=== PATIENT | male | born 1990 | race Caucasian/White ===

== ENCOUNTER 2022-09-19 12:33 | Emergency (ER) | payer OTHER, SELFPAY ==
[2022-09-19 12:49] VITALS: BP 123/81; PULSE 65; RESP 18; TEMP 36.4; O2SAT 96; BMI 29.4
--- NOTE | 2022-09-19 13:04 | CRLHL7_ITS ---
For Patients: As a result of the Cures Act, medical imaging exams and procedure reports are released immediately into your electronic medical record. You may view this report before your referring provider. If you have questions, please contact your health care provider. INDICATION: Pain TECHNIQUE: 3-view lumbar spine. COMPARISON: none FINDINGS: The lumbar vertebrae are anatomically aligned. The disc spaces are of normal height. Minimal discogenic spurring as L4-5. The facet joints appear intact. There is no evidence of a fracture or intrinsic bone lesion. The SI joints appear normal. The paraspinal soft tissues appear normal. IMPRESSION: No sign of acute injury. Dictated by Js Colindres MD @ 09/19/2022 1:34:47 PM (Electronically Signed)
--- NOTE | 2022-09-19 13:11 | ED.BACK ---
HPI - Back Pain/Injury General Date Seen: 09/19/22 Chief Complaint: Back Injury/Pain Stated Complaint: Lower back pain Time Seen by Provider: 09/19/22 12:36 Source: patient and family Mode of arrival: ambulatory Limitations: no limitations History of Present Illness HPI Narrative: Patient is a 32-year-old gentleman who presents here with back pain and left leg symptoms, he has had this now for approximately 5 days, after he bent over. Has a history of previous back issues, with an MRI remotely in the past, and a history of a pinched nerve. He has been to the chiropractor now 3 times, got some initial relief but today got no relief, he feels the back pain worse when he sits, he is get some relief with standing, really has inability to forward flex. As the pain going down his left leg, and the hamstrings, but not into his calf so much. Denies any weakness associated with this, any altered sensation no history of fevers chills or sweats, no history of weight loss, bowel or bladder symptoms, personal history of malignancy, or trauma, fevers chills or other issue. Took some ibuprofen 600 mg this morning, but came in here with his . They are scheduled to go on a trip to [facility] here in the next 2 days. MD elicited complaint: back pain Pertinent past history: prior back pain Onset (ago): day(s) Timing: constant and progressively worsening Severity: moderate Similar Symptoms Previously: Yes Quality: burning and stabbing Location: lumbar spine Radiation: left upper leg Exacerbating factors: movement, sitting upright and coughing/sneezing Relieving factors: none Context: while lifting Associated symptoms: denies other symptoms Work related injury: No Related Data Home Medications Medication Instructions Recorded Confirmed No Known Home Medications 09/19/22 09/19/22 Previous Rx's Medication Instructions Recorded methylprednisolone 4 mg tablets in 4 mg PO DAILY #21 ea 09/19/22 a dose pack (Medrol (Edenilson)) Allergies Allergy/AdvReac Type Severity Reaction Status Date / Time lactose Allergy Mild Abdominal Verified 09/11/22 11:24 Pain Review of Systems Status of ROS: Reports: 10 or more systems reviewed and unremarkable except as noted in History and below PFSH PFSH Family History Grandmother Diabetes Social History Smoking Status: Never smoker How often do you have a drink containing alcohol: never AUDIT-C Alcohol total score: 0 Non-prescribed substance use: denies use Exam Narrative: Exam Narrative: Patient is seen in room 3 he is in no apparent distress he is able to stand up he has a scoliosis of his lumbar spine which appears to be reactive, convex right. Forward flexion is approximately 30? backward extension is full, thoracic rotation is full, side flexion improves the situation he comes to the right worsens when he goes to the left, he is able to heel and toe walk for me in the room, SLR is are negative to 90? sitting, but positive at 60? on the left. While laying down. Presents no obvious sensory changes on gross sensation of his lower legs, is reflexes are +2/4 his knees and ankles, EHL, great toe flexors, ankle dorsiflexors and plantar flexors, knee flexors and extensors, and hip flexors are graded 5/5 power bilaterally, pulses normal the lower extremities. Const: Vital Signs, click to edit/add: Vital Signs - 24 hr 09/19/22 12:49 Temperature 97.5 F L Pulse Rate [Pulse Oximeter] 65 Respiratory Rate 18 Blood Pressure [Ri ght Upper Arm] 123/81 Pulse Oximetry 96 Oxygen Delivery Me thod Room Air Documenting provider has reviewed patient's vital signs: yes Course Course Hospital Course: I spoke to patient is x-rays are negative, he has a reassuring examination, I do believe that he has a left-sided radiculopathy, most likely from L5-S1 given the findings. I think it would be reasonable to try Medrol Dosepak along with some short-term narcotic medication, the risks benefits and side effects of this discussed in detail, I recommend use of ice belt also. Follow-up with primary care if ongoing signs and symptoms. Note for work given for today Vital Signs Vital signs: Initial Vital Signs Temperature 97.5 F L 09/19/22 12:49 Temperature Source Temporal Artery Scan 09/19/22 12:49 Pulse Rate 65 09/19/22 12:49 Respiratory Rate 18 09/19/22 12:49 Blood Pressure 123/81 09/19/22 12:49 Blood Pressure Mean 95 09/19/22 12:49 Blood Pressure Position Supine 09/19/22 12:49 Pulse Oximetry 96 09/19/22 12:49 Oxygen Delivery Method 09/19/22 12:49 Vital Signs Temperature 97.5 F L 09/19/22 12:49 Pulse Rate 65 09/19/22 12:49 Respiratory Rate 18 09/19/22 12:49 Blood Pressure 123/81 09/19/22 12:49 Pulse Oximetry 96 09/19/22 12:49 Oxygen Delivery Method 09/19/22 12:49 Temperature 97.5 F L 09/19/22 12:49 Pulse Rate 65 09/19/22 12:49 Respiratory Rate 18 09/19/22 12:49 Blood Pressure 123/81 09/19/22 12:49 Pulse Oximetry 96 09/19/22 12:49 Oxygen Delivery Method 09/19/22 12:49 MDM - Back Pain/Injury MDM Narrative Medical decision making narrative: Life-threatening differential diagnosis considered include: Cauda equina an epidural abscess, other differential diagnosis considered includes sprain, contusion, nerve root entrapment, radiculopathy, muscle spasm, urolithiasis, lumbar fracture, pyelonephritis, appendicitis, biliary colic, as well as other etiologies. The patient denies saddle anesthesia bowel or bladder incontinence or lower extremity weakness, recent weight loss, or history of malignancy. Medical Records Attestation: I reviewed the patient's medical records. Imaging Data Lumbar x-ray: Attestation: I have reviewed the pertinent imaging results. My impression: No acute findings Radiologist's impression: Patient: KEYLA MCCURDY Facility:?[facility] Patient ID:?[id number] Site Patient ID:?[id number]. Site :?[id number] Study:?XRay Spine Lumbar 3 VIEWS-09/19/2022 1:21:18 PM Ordering Physician:Lourdes Quintanilla Final Report: INDICATION: Pain TECHNIQUE: 3-view lumbar spine. COMPARISON: none FINDINGS: The lumbar vertebrae are anatomically aligned. The disc spaces are of normal height. Minimal discogenic spurring as L4-5. The facet joints appear intact. There is no evidence of a fracture or intrinsic bone lesion. The SI joints appear normal. The paraspinal soft tissues appear normal. IMPRESSION: No sign of acute injury. Dictated by Js Colindres MD @ 09/19/2022 1:34:47 PM (Electronic Signature) Discharge Plan Discharge Clinical Impression: Back pain Patient Disposition: Home w/ Parent or Adult Condition: Stable Instructions: Acute Low Back Pain (ED) Additional Instructions: Home, rest, use of medications as directed, ice, follow-up with primary care if ongoing signs and symptoms of worsening. Prescriptions: New methylprednisolone [Medrol (Edenilson)] 4 mg tablets,dose pack 4 mg PO DAILY Qty: 21 0RF No Action No Known Home Medications Follow Up/Referrals: Js Kirby MD [Staff Physician] - Stand Alone Forms: [employer] Info Instructions
[2022-09-19] MEDS: KETOROLAC 30 MG/ML inj 60 MG IM (13:20)
== END 2022-09-19 14:29 | disposition home or self-care (01) ==
PROVIDERS: Emergency Provider Family Medicine
DX: M54.50 Low back pain, unspecified (principal)
CPT/HCPCS: 72100; 96372; 99283; 99284; J1885

== ENCOUNTER 2022-11-24 06:11 | Emergency (ER) | payer OTHER, SELFPAY ==
[2022-11-24] VITALS (19 sets, daily range): BP systolic 106–135; BP diastolic 66–95; PULSE 48–77; RESP 14–16; TEMP 36.7; O2SAT 79–100; BMI 28.9
--- NOTE | 2022-11-24 06:19 | CRLHL7_ITS ---
For Patients: As a result of the 21st Century Cures Act, medical imaging exams and procedure reports are released immediately into your electronic medical record. You may view this report before your referring provider. If you have questions, please contact your health care provider. INDICATION: Flank pain COMPARISON: None TECHNIQUE: CT examination of the abdomen and pelvis was performed without intravenous contrast. Thin section axial images were obtained from the lung bases through the pubic symphysis. Oral contrast was not administered. Please note that all CT scans at this facility use dose modulation, iterative reconstruction, and/or weight-based dosing when appropriate to reduce radiation dose to as low as reasonably achievable. FINDINGS: LUNG BASES: The lung bases as visualized appear normal.The heart size is normal at the lung bases. LIVER/BILIARY SYSTEM:The liver is normal in size and configuration given the lack of intravenous contrast. There is no visible focal mass and there is no intra- or extra hepatic biliary ductal dilatation.The gall bladder appears normal. ADRENALS: Normal non-contrast appearance KIDNEYS, URETERS and BLADDER:No intrarenal calculi on the right. There is a 2 millimeter left lower pole intrarenal calculus on the left. There is a 3 millimeter calculus in the distal right ureter about 1 centimeter from the right ureterovesical junction. No significant upstream dilation or perinephric/periureteric stranding. SPLEEN:Normal non-contrast appearance. PANCREAS: Normal non-contrast appearance. RETROPERITONEUM and MESENTERY: There is no mass, adenopathy or aortic aneurysm. GASTROINTESTINAL SYSTEM: There is no evidence of diverticulitis, colitis, mechanical obstruction, or appendicitis. The small bowel as visualized appears normal.Fatty infiltration of the colonic wall incidentally noted. No associated inflammatory process. PELVIS: No mass, adenopathy or free fluid. OSSEOUS STRUCTURES and ABDOMINAL WALL: There is an age-appropriate appearance of the osseous structures.No significant abdominal wall defect. OTHER: No free fluid or free air. IMPRESSION: There is a 3 millimeter calculus in the distal right ureter about 1 centimeter from the right ureterovesical junction. No significant upstream dilation, perinephric stranding or periureteric stranding. Intrarenal calculus on the left. Please note that all CT scans at this facility use dose modulation, iterative reconstruction, and/or weight-based dosing when appropriate to reduce radiation dose to as low as reasonably achievable. Dictated by Nathan Cordero MD @ 11/24/2022 7:23:44 AM (Electronically Signed)
--- NOTE | 2022-11-24 06:20 | ED_ITS ---
HPI - General Adult General Time Seen by Provider: 06:20 Date Seen: 11/24/22 Chief complaint: Flank Pain Stated complaint: Right Side Abdominal Pain Time Seen by Provider: 11/24/22 06:16 Source: patient, family, RN notes reviewed and old records reviewed Mode of arrival: ambulatory Limitations: no limitations History of Present Illness HPI narrative: 32-year-old male who comes in today with right sided abdominal pain. Abrupt onset about 15 minutes prior to ED arrival. Pain radiates down into the scrotum and up into the back. Nausea without vomiting. Pain waxes and wanes. No relieving or exacerbating factors, patient has not taken anything for this. No prior history of kidney stones, no prior surgeries, no medications, no allergies. Related Data Home Medications Medication Instructions Recorded Confirmed No Known Home Medications 09/19/22 11/24/22 Allergies Allergy/AdvReac Type Severity Reaction Status Date / Time lactose Allergy Mild Abdominal Verified 11/24/22 06:19 Pain PFSH PFSH Medical History (Updated 11/24/22 @ 06:47 by Karl Banda MD) ANDREW (obstructive sleep apnea) ?G47.33 - Obstructive sleep apnea (adult) (pediatric) (ICD-10) Surgical History (Updated 11/24/22 @ 06:32 by Chapincito Rivera RN) History of vasectomy ?Z98.52 - Vasectomy status (ICD-10) Family History Grandmother Diabetes Social History Smoking Status: Never smoker Second hand tobacco smoke exposure: No How often do you have a drink containing alcohol: never How often do you have six or more drinks on one occasion: Never AUDIT-C Alcohol total score: 0 Non-prescribed substance use: denies use Exam Narrative: Exam Narrative: General: Well-developed and well-nourished, no acute distress Head: Atraumatic and normocephalic Eyes: Pupils are equal reactive, extraocular motions intact, conjunctiva clear ENT: External nose and ears are normal, posterior pharynx without erythema or exudate Neck: No midline cervical tenderness, full spontaneous range of motion the neck, trachea midline, no adenopathy Heart: Regular rate and rhythm no murmurs or thrills Lungs: Clear to auscultation bilaterally without wheezes or crackles Abdomen: Soft, right lateral abdominal tenderness with right CVA tenderness, nondistended with active bowel sounds Musculoskeletal: No tenderness, deformity, or edema Neurologic: Awake, alert, and oriented x3, no gross focal neurologic deficits, cranial nerves intact as tested Psych: Mood and affect are appropriate Skin: No rashes Const: Vital Signs, click to edit/add: Vital Signs - 24 hr 11/24/22 06:16 11/24/22 06:21 11/24/22 06:22 Temperature 98.0 F Pulse Rate 77 Pulse Rate [Right Pulse Oximeter] 62 Respiratory Rate 16 16 Blood Pressure 122/70 Blood Pressure [Ri ght Upper Arm] 135/84 Pulse Oximetry 99 100 100 Oxygen Delivery Me thod Room Air 11/24/22 06:23 11/24/22 06:26 11/24/22 06:34 Temperature 98.0 F Pulse Rate 75 Pulse Rate [Right Pulse Oximeter] 65 Respiratory Rate 16 Blood Pressure Blood Pressure [Ri ght Upper Arm] 122/74 Pulse Oximetry 100 100 79 L Oxygen Delivery Or thod Room Air 11/24/22 07:02 11/24/22 07:04 11/24/22 07:39 Temperature Pulse Rate 50 L 59 L Pulse Rate [Right Pulse Oximeter] Respiratory Rate Blood Pressure 124/85 Blood Pressure [Ri ght Upper Arm] Pulse Oximetry 100 100 97 Oxygen Delivery Or thod 11/24/22 07:42 Temperature Pulse Rate Pulse Rate [Right Pulse Oximeter] 49 L Respiratory Rate 14 Blood Pressure Blood Pressure [Ri ght Upper Arm] 117/87 Pulse Oximetry 92 Oxygen Delivery Or thod Room Air Course Course Hospital Course: Patient seen examined, prior records reviewed. Patient presents with abrupt onset right lower quadrant pain radiated did right testicle and scrotum along with nausea, symptoms are suspicious for kidney stone. Acute appendicitis possible but less likely. Toradol, Zofran, labs, CT scan ordered. Reevaluation(s) Reevaluation #1: CT scan independently interpreted by me demonstrates a 3-4 mm stone at the right UVJ, also a smaller nonobstructing stone in the left renal pelvis. Patient with minimal improvement after Toradol, Dilaudid IV is ordered. Updated patient and spouse with findings and plan. CBC independently interpreted by me does not demonstrate leukocytosis, BMP and urinalysis are pending. Anticipate discharge with medications to help with pain. Time: 06:42 Reevaluation #2: Patient is not yet provided a urine sample, Dr. Quiroga will follow-up with this but patient does not need further evaluation or treatment at this time and is stable for discharge. Time: 07:59 Vital Signs Vital signs: Initial Vital Signs Temperature 98.0 F 11/24/22 06:16 Temperature Source Temporal Artery Scan 11/24/22 06:16 Pulse Rate 62 11/24/22 06:16 Respiratory Rate 16 11/24/22 06:16 Blood Pressure 135/84 11/24/22 06:16 Blood Pressure Mean 101 11/24/22 06:16 Blood Pressure Position Sitting 11/24/22 06:16 Pulse Oximetry 99 11/24/22 06:16 Oxygen Delivery Method Room Air 11/24/22 06:16 Vital Signs Temperature 98.0 F 11/24/22 06:16 Pulse Rate 62 11/24/22 06:16 Respiratory Rate 16 11/24/22 06:16 Blood Pressure 135/84 11/24/22 06:16 Pulse Oximetry 99 11/24/22 06:16 Oxygen Delivery Method Room Air 11/24/22 06:16 Temperature 98.0 F 11/24/22 06:26 Pulse Rate 49 L 11/24/22 07:42 Respiratory Rate 14 11/24/22 07:42 Blood Pressure 117/87 11/24/22 07:42 Pulse Oximetry 92 11/24/22 07:42 Oxygen Delivery Method Room Air 11/24/22 07:42 Medical Decision Making Lab Data Labs: Lab Results 11/24/22 Range/Units 06:20 WBC 6.92 (4.50-11.00) K/uL RBC 5.68 (4.30-5.90) m/uL Hgb 15.6 (13.5-17.5) gm/dL Hct 45.4 (37.0-53.0) % MCV 80 (80-100) fL MCH 28 (26-34) pg MCHC 34 (32-36) gm/dL RDW Coeff of Wojciech 12.8 (11.5-15.5) % Plt Count 262 (140-440) K/uL Neut % (Auto) 43.0 (42.0-72.0) % Lymph % (Auto) 46.8 H (20-44) % [place] % (Auto) 8.1 (0.0-11.0) % Eos % (Auto) 1.7 (0.0-7.0) % Baso % (Auto) 0.3 (0.0-3.0) % Neut # (Auto) 2.97 (1.7-7.0) K/uL Lymph # (Auto) 3.20 H (0.90-2.90) K/uL [place] # (Auto) 0.60 (0.00-0.90) K/UL Eos # (Auto) 0.12 (0.00-0.50) K/uL Baso # (Auto) 0.02 (0.00-0.30) K/uL Sodium 141 (135-149) mmol/L Potassium 3.8 (3.6-5.1) mmol/L Chloride 106 (96-114) mmol/L Carbon Dioxide 24 (20-32) mmol/L BUN 21 (5-24) mg/dL Creatinine 0.8 (0.5-1.5) mg/dL Estimated Creat Clear 117.41 Estimated GFR 119 ml/min Glucose 135 H (60-115) mg/dL Calcium 9.4 (8.4-10.6) mg/dL Discharge Plan Discharge Clinical Impression: Right distal ureteral calculus Patient Disposition: Home w/ Parent or Adult Condition: Improved Instructions: Ureteral Stones (ED) Additional Instructions: Take ibuprofen 600 mg every 6 hours alternating with Tylenol 650 mg every 6 hours. Take this on schedule until you pass your stone Take Percocet for pain not controlled with Tylenol and ibuprofen Use Zofran for nausea vomiting Drink to thirst Follow-up with [facility] ([phone]) or [facility] ([phone] )) Activity Level: No Restrictions Discharge Diet: Regular Prescriptions: No Action No Known Home Medications Follow Up/Referrals: Provider,Not a Local [Primary Care Provider] - Stand Alone Forms: [email or web address] Info Instructions
[2022-11-24] MEDS: KETOROLAC 15 MG/ML inj IVP ×2 (06:23→08:14)
[2022-11-24] MEDS: ONDANSETRON 2 MG/ML inj 4 MG IVP (06:23)
[2022-11-24 06:27] LABS: Basophils Absolute Auto 0.02 K/uL (0.00-0.30); Basophils Percent Auto 0.3 % (0.0-3.0); Eosinophils Absolute Auto 0.12 K/uL (0.00-0.50); Eosinophils Percent Auto 1.7 % (0.0-7.0); Hematocrit 45.4 % (37.0-53.0); Hemoglobin* 15.6 gm/dL (13.5-17.5); Immature Granulocytes Abs Auto 0.01 K/uL (0.00-0.30); Immature Granulocytes Pct Auto 0.1 %; Lymphocytes Percent Auto 46.8 % (20-44); Mean Corpuscular HGB Conc 34 gm/dL (32-36); Mean Corpuscular Hemoglobin 28 pg (26-34); Mean Corpuscular Volume 80 fL (80-100); Monocytes Percent Auto 8.1 % (0.0-11.0); Neutrophils Absolute Auto 2.97 K/uL (1.7-7.0); Platelet Count* 262 K/uL (140-440); RDW Coefficient of Variation % 12.8 % (11.5-15.5); Red Blood Count 5.68 m/uL (4.30-5.90); White Blood Count* 6.92 K/uL (4.50-11.00)
[2022-11-24 06:29] LABS: Slide Review Reflex No
[2022-11-24] MEDS: HYDROmorphone 0.5 mg/0.5 ml inj IVP ×3 (06:37→08:15)
[2022-11-24 06:38] LABS: Chloride* 106 mmol/L (96-114)
[2022-11-24 06:39] LABS: Potassium* 3.8 mmol/L (3.6-5.1); Sodium* 141 mmol/L (135-149)
[2022-11-24 06:41] LABS: Creatinine* 0.8 mg/dL (0.5-1.5); Est. Creatinine Clearance* 117.41; Estimated Glomerular Filt Rate 119 ml/min
[2022-11-24 06:42] LABS: Blood Urea Nitrogen* 21 mg/dL (5-24); Calcium* 9.4 mg/dL (8.4-10.6); Carbon Dioxide* 24 mmol/L (20-32); Glucose* 135 mg/dL (60-115)
[2022-11-24] MEDS: OxyCODONE/APAP 5-325 TABLET 1 TAB PO (07:18)
[2022-11-24 08:20] LABS: Appearance Urine Slightly Cloudy (Clear); Bilirubin Urine Negative (Negative); Blood Urine 2+ (Negative); Color Urine Yellow (Yellow); Glucose Urine Negative (Negative); Ketones Urine 1+ (Negative); Leukocyte Esterase Urine Negative (Negative); Nitrite Urine Negative (Negative); Protein Urine Trace (Negative); Specific Gravity Urine >= 1.030 (1.000-1.030); Urobilinogen Urine 0.2 (0.2-1.0); pH Urine 5.5 (5.0-8.5)
[2022-11-24 08:27] LABS: Amorphous Sediment Urine Many; Squamous Epithelial Cell Urine Few (None-Few); WBC Urine 0-2 (0-5)
== END 2022-11-24 09:35 | disposition home or self-care (01) ==
PROVIDERS: Emergency Provider Family Medicine
DX: N20.1 Calculus of ureter (principal)
CPT/HCPCS: 36415; 74176; 80048; 81001; 85025; 94761; 96374; 96375; 99284; 99285; A9270; J1170; J1885; J2405

== ENCOUNTER 2023-03-30 11:55 | Emergency (ER) | payer OTHER, SELFPAY ==
[2023-03-30] VITALS (7 sets, daily range): BP systolic 118–145; BP diastolic 69–89; PULSE 59–89; RESP 18–24; TEMP 36.3; O2SAT 97–100; BMI 28.2
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
[2023-03-30 14:29] LABS: Basophils Absolute Auto 0.02 K/uL (0.00-0.30); Basophils Percent Auto 0.2 % (0.0-3.0); Eosinophils Absolute Auto 0.04 K/uL (0.00-0.50); Eosinophils Percent Auto 0.5 % (0.0-7.0); Hematocrit 44.3 % (37.0-53.0); Immature Granulocytes Abs Auto 0.01 K/uL (0.00-0.30); Immature Granulocytes Pct Auto 0.1 %; Lymphocytes Percent Auto 15.4 % (20-44); Mean Corpuscular HGB Conc 34 gm/dL (32-36); Mean Corpuscular Hemoglobin 27 pg (26-34); Mean Corpuscular Volume 81 fL (80-100); Monocytes Percent Auto 4.6 % (0.0-11.0); Neutrophils Percent Auto 79.2 % (42.0-72.0); Platelet Count* 241 K/uL (140-440); RDW Coefficient of Variation % 12.6 % (11.5-15.5); Red Blood Count 5.48 m/uL (4.30-5.90); White Blood Count* 8.72 K/uL (4.50-11.00)
[2023-03-30 14:38] LABS: Slide Review Reflex No
[2023-03-30 14:46] LABS: Chloride* 102 mmol/L (96-114); Potassium* 4.2 mmol/L (3.6-5.1); Sodium* 142 mmol/L (135-149)
[2023-03-30 14:49] LABS: Anion Gap 11 mEq/L (7-15); Carbon Dioxide* 29 mmol/L (20-32); Creatinine* 0.7 mg/dL (0.5-1.5); Est. Creatinine Clearance* 134.18; Estimated Glomerular Filt Rate 124 ml/min
[2023-03-30 14:50] LABS: Blood Urea Nitrogen* 10 mg/dL (5-24); Calcium* 10.2 mg/dL (8.4-10.6); Glucose* 110 mg/dL (60-115)
[2023-03-30 14:53] LABS: D Dimer Quantitative* < 0.27 ug/ml (0.00-0.50)
[2023-03-30 15:02] LABS: NT Pro B Type NatriureticPept* < 20 pg/mL
--- NOTE | 2023-03-30 16:24 | CRLHL7_ITS ---
For Patients: As a result of the Cures Act, medical imaging exams and procedure reports are released immediately into your electronic medical record. You may view this report before your referring provider. If you have questions, please contact your health care provider. INDICATION: Right-sided headaches. COMPARISON: None. TECHNIQUE: Noncontrast CT head. FINDINGS: Normal brain parenchymal morphology. No acute intracranial hemorrhage, acute infarct, focal edema, mass effect, or fracture. No midline shift. No abnormal ventricular dilatation. Normal calvarium and skull base. Visualized paranasal sinuses and mastoid air cells are clear. Normal orbits bilaterally. IMPRESSION: 1. No acute intracranial abnormality. 2. Normal brain parenchymal morphology Please note that all CT scans at this facility use dose modulation, iterative reconstruction, and/or weight-based dosing when appropriate to reduce radiation dose to as low as reasonably achievable. Dictated by Adebayo Springer MD @ 03/30/2023 4:45:47 PM (Electronically Signed)
[2023-03-30 16:27] LABS: Thyroid Stimulating Hormone* 0.422 uIU/mL (0.270-4.20)
== END 2023-03-30 16:50 | disposition home or self-care (01) ==
PROVIDERS: Emergency Provider Family Medicine
DX: R51.9 Headache, unspecified (principal); R55 Syncope and collapse
CPT/HCPCS: 36415; 70450; 80048; 83880; 84443; 85025; 85379; 93005; 93225; 93226; 94761; 99284; 99285

== ENCOUNTER 2025-04-07 09:24 | Outpatient (CLI) | payer OTHER, SELFPAY | END 2025-04-07 09:25 | disposition home or self-care (01) | PROVIDERS: PCP Family Medicine; Visit Provider Family Medicine | DX: Z13.1 Encounter for screening for diabetes mellitus (principal); Z13.6 Encounter for screening for cardiovascular disorders | CPT/HCPCS: 80061; 82947 ==

== ENCOUNTER 2025-04-13 15:16 | Outpatient (CLI) | payer OTHER, SELFPAY ==
--- NOTE | 2025-04-13 15:30 | CRLHL7_ITS ---
For Patients: As a result of the Century Cures Act, medical imaging exams and procedure reports are released immediately into your electronic medical record. You may view this report before your referring provider. If you have questions, please contact your health care provider. Indication: Headache. Technique: Multiplanar multisequence noncontrast MR images of the brain. Comparison: CT brain 03/30/2023. Findings: The ventricles and sulci are within normal limits for patient age. No mass effect or midline shift. No parenchymal signal abnormalities. No intracranial hemorrhage or pathologic extra-axial fluid collection. No diffusion restriction to suggest acute infarction. The major arterial flow voids of the skull base are preserved. Globes are symmetric. [id number] opacification of the left ethmoid air cells. Mastoid air cells are clear. Impression: Unremarkable noncontrast MRI of the brain. Dictated by Lloyd Saul MD @ 04/13/2025 8:41:34 PM (Electronically Signed)
== END 2025-04-13 15:17 | disposition home or self-care (01) ==
LOC: MRI 15:17
PROVIDERS: PCP Family Medicine; Visit Provider Family Medicine
DX: R51.9 Headache, unspecified (principal)
CPT/HCPCS: 70551

== ENCOUNTER 2025-05-05 08:45 | Outpatient (CLI) | payer OTHER, SELFPAY ==
--- NOTE | 2025-05-26 13:00 | W.PM.SLEEP ---
Sleep Study Details Details Interpreting Provider: Jagdish Date of Sleep Study: 05/05/25 Sleep Study Details: STUDY TYPE:? Home unattended ? BMI:? 29.05 ORDERING PROVIDER:[place] INDICATION:? Concern for sleep apnea ? SLEEP SUMMARY:? 264 minutes monitored RESPIRATORY SUMMARY:? AHI 10.2 per rule 1A, 5.5 per CMS guideline low oxygen 80 PERIODIC LIMB MOVEMENTS OF SLEEP:? Not recorded CARDIAC:? Range 44-99, mean 58 beats per minute IMPRESSION:? Mild obstructive sleep apnea RECOMMENDATION: Treatment options include CPAP dental appliance and/or airway expansion surgery.
== END 2025-05-05 08:46 | disposition home or self-care (01) ==
LOC: SLEEP 08:45
PROVIDERS: PCP Family Medicine; Visit Provider Otolaryngology
DX: G47.33 Obstructive sleep apnea (adult) (pediatric) (principal)
CPT/HCPCS: 95806